=== PATIENT | male | born 1985 | race Caucasian/White ===

== ENCOUNTER 2021-12-16 12:42 | Outpatient (REF) | payer SELFPAY ==
[2021-12-16 12:57] LABS: Binax Now Covid-19 Ag Negative (Negative)
[2021-12-16 12:58] LABS: Binax Internal Control QC Valid
== END 2021-12-16 12:43 | disposition home or self-care (01) ==
LOC: HO.LAB 12:42
PROVIDERS: Visit Provider Internal Medicine
DX: Z13.89 Encounter for screening for other disorder (principal)